=== PATIENT | female | born 1975 | race African-American/Black ===

== ENCOUNTER 2023-12-30 09:28 | Observation (INO) | payer OTHER ==
[~2023-12-30 09:28] MED LIST: Iopamidol-370 76% 500 ML MDV (1 ML CHARGE) ONE
[2023-12-30] MEDS ORDERED: Metoclopramide HCl 10 MG (2 mL) VIAL ONE (10:07)
[2023-12-30 10:13] LABS: #Basophils Less than 0.03 10x3/uL (0.0-0.2); %Basophils 0.4 % (0.0-1.0); %Eosinophils 3.3 % (0.0-10.0); %Lymphocytes 26.6 % (21.0-51.0); %Monocytes 6.6 % (0.0-10.0); %Neutrophils 62.9 % (42.0-75.0); Hematocrit 32.1 % (36.0-47.0); Hemoglobin 9.8 g/dL (12.0-16.0); Mean Corpuscular HGB CONC 30.5 g/dL (32.0-36.0); Mean Corpuscular Hemoglobin 24.3 pg (27.0-31.0); Mean Corpuscular Volume 79.5 fL (78.0-98.0); Mean Platelet Volume 9.3 fL (7.4-10.4); Platelet Count 328 10x3/uL (130-400); Red Blood Cell (RBC) Count 4.04 mill/uL (4.20-5.40)
[2023-12-30 10:27] LABS: Prothrombin Time 13.5 sec (12.0-14.7)
[2023-12-30 10:32] LABS: ALT (SGPT) 10 U/L (8-55); AST (SGOT) 13 U/L (5-34); Albumin 2.9 g/dL (3.5-5.0); Alkaline Phosphatase 62 U/L (40-110); Anion Gap 11 mmol/L (10-20); BUN (Urea Nitrogen) 8 mg/dL (7.0-18.7); Bilirubin, Total 0.3 mg/dL (0.2-1.2); Calc. Creatinine Clearance 0 mL/min (70-130); Calcium 8.5 mg/dL (7.8-10.44); Carbon Dioxide 27 mmol/L (22-29); Chloride 107 mmol/L (98-107); Estimated GFR 107; Globulin 4.2 g/dL (2.4-3.5); Glucose 78 mg/dL (70-105); Potassium 3.9 mmol/L (3.5-5.1); Protein, Total 7.1 g/dL (6.0-8.3); Sodium 141 mmol/L (136-145)
[2023-12-30 10:38] LABS: Troponin I Less than 0.010 ng/mL (< 0.028)
[2023-12-30 10:56] LABS: Pregnancy Test - Urine (BHCG) Negative (Negative)
[2023-12-30 10:57] LABS: Pregu Control Background? CLEAR/WHITE (CLR/WHITE); Pregu Control Bar Appear? YES (CONTROL BAR); Specific Gravity 1.009 (1.002-1.036)
[2023-12-30 11:00] LABS: Amphetamine Not Detected (NotDetected); Barbiturates Screen Not Detected (NotDetected); Benzodiazepine Screen Not Detected (NotDetected); Cocaine Metabolite Screen Not Detected (NotDetected); Methadone Not Detected (NotDetected); Methamphetamine Not Detected (NotDetected); Opiate Screen Not Detected (NotDetected); Oxycodone Screen Not Detected (NotDetected); Phencyclidine (PCP) Not Detected (NotDetected); THC/Cannabinoid Screen Not Detected (NotDetected); Tricyclic Screen Not Detected (NotDetected)
[2023-12-30 11:01] LABS: Bacteria/HPF None Seen HPF (None Seen); Bilirubin Negative (Negative); Blood, Urine Negative (Negative); CAUTI Indications for Culture Pelvic or flank pain; Clarity Clear (Clear); Glucose, Urine (Dipstick) Normal (Negative); Ketone, Urine Negative (Negative); Leukocyte Negative Leu/uL (Negative); Nitrite Negative (Negative); Protein, Urine (Dipstick) Negative (Neg-Trace); RBC/HPF None Seen HPF (0-3); Specific Gravity, Urine 1.009 (1.002-1.036); Squamous Epithelial 0-3 HPF (0-3); Urobilinogen Normal mg/dL (Less than 2); WBC/HPF None Seen HPF (0-3)
[2023-12-30 11:05] LABS: Urine Culture Reflex No No
[2023-12-30] MEDS ORDERED: Aspirin Chewable 81 MG TAB ONE (13:07)
[2023-12-30] MEDS ORDERED: Ondansetron PF 4 MG/2 ML Vial IVP PRN (14:09)
[2023-12-30] MEDS ORDERED: Acetaminophen 325 MG TAB PO PRN (14:09)
[2023-12-30] MEDS ORDERED: Dextrose 5% in Water 1,000 ML IV PRN (14:51)
[2023-12-30] MEDS ORDERED: Insulin Lispro 100 UNIT/ML 10 ML VIAL SC PRN (14:51)
[2023-12-30] MEDS ORDERED: Dextrose 50% Abboject 50 ML SYRINGE SLOW IVP PRN (14:51)
[2023-12-30] MEDS ORDERED: Glucagon 1 MG/ML KIT IM PRN (14:51)
[2023-12-30] MEDS: Sodium Chloride 0.9% 1,000 ML IV SCH (15:47)
[2023-12-30] MEDS: Enoxaparin 120 MG/0.8 ML SYRINGE SC SCH (15:47)
[2023-12-30 18:30] LABS: Troponin I Less than 0.010 ng/mL (< 0.028)
[2023-12-30 18:35] VITALS: BMI 37.5
[2023-12-30 19:42] LABS: Troponin I Less than 0.010 ng/mL (< 0.028)
[2023-12-30] MEDS: Acetaminophen/Codeine 30-300mg Tablet PO PRN (20:02)
[2023-12-30] MEDS: Atorvastatin Calcium 40 MG TAB PO SCH (20:02)
[2023-12-30] MEDS: Fioricet 325/50/40 mg Tablet PO SCH (22:12)
[2023-12-30] MEDS: traMADol HCl 50 MG TAB PO SCH (23:47)
[2023-12-30] MEDS: Metoclopramide HCl 10 MG (2 mL) VIAL IVP SCH (23:48)
[2023-12-31 04:04] LABS: #Basophils Less than 0.03 10x3/uL (0.0-0.2); %Basophils 0.4 % (0.0-1.0); %Eosinophils 3.2 % (0.0-10.0); %Lymphocytes 34.7 % (21.0-51.0); %Monocytes 8.6 % (0.0-10.0); %Neutrophils 52.9 % (42.0-75.0); Hemoglobin 9.6 g/dL (12.0-16.0); Mean Corpuscular Hemoglobin 24.1 pg (27.0-31.0); Mean Corpuscular Volume 77.7 fL (78.0-98.0); Mean Platelet Volume 9.3 fL (7.4-10.4); Platelet Count 302 10x3/uL (130-400); RBC Distribution Width 16.9 % (11.5-14.5); Red Blood Cell (RBC) Count 3.99 mill/uL (4.20-5.40)
[2023-12-31 04:23] LABS: Hemoglobin A1c 5.4 % (4.0-6.0)
[2023-12-31 04:30] LABS: ALT (SGPT) 11 U/L (8-55); AST (SGOT) 12 U/L (5-34); Albumin 2.5 g/dL (3.5-5.0); Alkaline Phosphatase 55 U/L (40-110); Anion Gap 11 mmol/L (10-20); BUN (Urea Nitrogen) 8 mg/dL (7.0-18.7); Bilirubin, Total 0.3 mg/dL (0.2-1.2); Calc. Creatinine Clearance 167 mL/min (70-130); Carbon Dioxide 24 mmol/L (22-29); Cardiac Risk 3.8 (Less than 4.5); Chloride 109 mmol/L (98-107); Cholesterol 121 mg/dl (< 200 Desired); Estimated GFR 105; Globulin 3.7 g/dL (2.4-3.5); Glucose 80 mg/dL (70-105); HDL Cholesterol 32 mg/dL (>60 Neg Risk); LDL Cholesterol, Calculated 78 mg/dL; Potassium 4.2 mmol/L (3.5-5.1); Protein, Total 6.2 g/dL (6.0-8.3); Sodium 140 mmol/L (136-145); Triglycerides 54 mg/dL (Less than 150)
[2023-12-31 04:32] LABS: Troponin I Less than 0.010 ng/mL (< 0.028)
[2023-12-31 08:16] VITALS: TEMP 97.5
[2023-12-31] MEDS ORDERED: SUMAtriptan Succinate 50 MG TAB PO PRN (09:10)
[2023-12-31] MEDS ORDERED: Methocarbamol 500 MG TAB PO PRN (09:19)
[2023-12-31] MEDS: Aspirin 325 mg Enteric Coated Tablet PO SCH (09:28)
[2023-12-31] MEDS: Enoxaparin 120 MG/0.8 ML SYRINGE SC SCH (09:28)
[2023-12-31] MEDS: Methocarbamol 500 MG TAB PO SCH (09:28)
[2023-12-31 15:45] LABS: ANA Symphony (Qualitative) Negative (Negative); ANA Symphony (Quantitative) 0.4 Ratio (< 0.7 Negative); dsDNA IgG Antibody 0.9 IU/mL (<10 Negative)
[2023-12-31 17:26] VITALS: BP 122/71
== END 2023-12-31 11:05 | disposition home or self-care (01) ==
LOC: EEVIPCON 09:28 → ERS 09:28 → ERHOLD 13:37 → 2SE 18:19
PROVIDERS: ADMIT Internal Medicine; ATTEND Internal Medicine
PROC: B246ZZZ Ultrasonography of Right and Left Heart (ICD-10-PCS; principal; 2023-12-31)
DX: R51.9 Headache, unspecified (principal); M54.2 Cervicalgia; I10 Essential (primary) hypertension; I82.409 Acute embolism and thrombosis of unspecified deep veins of unspecified lower extremity; I63.9 Cerebral infarction, unspecified; R73.03 Prediabetes; R60.9 Edema, unspecified; Z79.82 Long term (current) use of aspirin; Z79.899 Other long term (current) drug therapy; Z79.01 Long term (current) use of anticoagulants
CPT/HCPCS: 36415; 36416; 70496; 70498; 70551; 72040; 80053; 80061; 80306; 81001; 81025; 83036; 83090; 84439; 84443; 84484; 85025; 85610; 86038; 86225; 93005; 93306; 96372; 96374; 96376; G0378; J1650; J2765; J7030; Q9967

== ENCOUNTER 2024-06-03 09:54 | Emergency (ER) | payer OTHER ==
[2024-06-03 11:10] LABS: #Basophils Less than 0.03 10x3/uL (0.0-0.2); %Basophils 0.3 % (0.0-1.0); %Eosinophils 1.2 % (0.0-10.0); %Lymphocytes 17.8 % (21.0-51.0); %Monocytes 6.3 % (0.0-10.0); %Neutrophils 74.1 % (42.0-75.0); Hematocrit 33.8 % (36.0-47.0); Hemoglobin 10.4 g/dL (12.0-16.0); Mean Corpuscular HGB CONC 30.8 g/dL (32.0-36.0); Mean Corpuscular Hemoglobin 23.4 pg (27.0-31.0); Mean Corpuscular Volume 76.1 fL (78.0-98.0); Mean Platelet Volume 9.8 fL (7.4-10.4); Platelet Count 195 10x3/uL (130-400); RBC Distribution Width 17.1 % (11.5-14.5); Red Blood Cell (RBC) Count 4.44 mill/uL (4.20-5.40)
[2024-06-03] MEDS ORDERED: Ketorolac Tromethamine 30 MG (1 mL) VIAL ONE ×2 (11:40→14:02)
[2024-06-03] MEDS ORDERED: Ondansetron PF 4 MG/2 ML Vial ONE (11:40)
[2024-06-03 12:38] LABS: Bacteria/HPF None Seen HPF (None Seen); Bilirubin Negative (Negative); Blood, Urine Negative (Negative); CAUTI Indications for Culture Pelvic or flank pain; Clarity Clear (Clear); Glucose, Urine (Dipstick) Normal (Negative); Ketone, Urine Negative (Negative); Leukocyte Negative Leu/uL (Negative); Nitrite Negative (Negative); Protein, Urine (Dipstick) Negative (Neg-Trace); RBC/HPF 0-3 HPF (0-3); Specific Gravity, Urine 1.019 (1.002-1.036); Squamous Epithelial 0-3 HPF (0-3); Urobilinogen Normal mg/dL (Less than 2); WBC/HPF 0-3 HPF (0-3); pH, Urine 7.5 (5.0-9.0)
[2024-06-03 12:39] LABS: Urine Culture Reflex No No
[2024-06-03 12:41] LABS: ALT (SGPT) 77 U/L (Less than 34); AST (SGOT) 146 U/L (11-34); Albumin 2.9 g/dL (3.1-4.5); Alkaline Phosphatase 125 U/L (40-110); Anion Gap 11 mmol/L (10-20); BUN (Urea Nitrogen) 8 mg/dL (7.0-18.7); Bilirubin, Total 0.6 mg/dL (0.3-1.2); Calc. Creatinine Clearance 0 mL/min (70-130); Calcium 8.8 mg/dL (7.8-10.44); Carbon Dioxide 25 mmol/L (22-29); Chloride 106 mmol/L (98-107); Estimated GFR 110; Globulin 4.5 g/dL (2.4-3.5); Glucose 82 mg/dL (70-105); Lipase 30 U/L (8-78); Potassium 4.6 mmol/L (3.5-5.1); Protein, Total 7.4 g/dL (6.0-8.3); Sodium 137 mmol/L (136-145)
[2024-06-03 12:42] LABS: Troponin I Less than 0.010 ng/mL (< 0.028)
== END 2024-06-03 17:15 ==
LOC: EEVIPCON 09:54 → ERS 09:54
DX: K80.42 Calculus of bile duct with acute cholecystitis without obstruction (principal); I11.0 Hypertensive heart disease with heart failure; I50.9 Heart failure, unspecified; Z79.82 Long term (current) use of aspirin; Z79.899 Other long term (current) drug therapy; Z86.718 Personal history of other venous thrombosis and embolism
CPT/HCPCS: 36415; 76705; 80053; 81001; 82248; 83690; 84484; 85025; 93005; 96374; 96375; 96376; J1885; J2405